=== PATIENT | female | born 1985 | race Caucasian/White ===

== ENCOUNTER 2018-07-11 17:31 | Emergency (ER) | payer SELFPAY ==
[~2018-07-11] VITALS: Ht 154.9 cm; Wt 51.4 kg
[~2018-07-11 17:31] MED LIST: NORCO 325 MG-51 TAB PO; ZOFRAN8 MG PO
[2018-07-11 17:38] VITALS: BP 113/62; TEMP 100.2
[2018-07-11 18:20] LABS: BASO % 0.1 % (0.0-2.0); EOS # 0.1 (0.0-0.7); EOS % 0.5 % (0-4.0); GRAN # 11.8 (1.4-6.5); GRAN % 87.5 % (42.2-75.2); HEMATOCRIT 37.7 % (37.0-47.0); HEMOGLOBIN 12.9 g/dl (12.5-16.0); LYMPH % 7.7 % (20.0-51.0); MEAN CELL VOLUME 93 fl (80.0-100.0); MEAN CORPUSCULAR HEMOGLOBIN 32 pg (27.0-31.0); MEAN CORPUSCULAR HGB CONC 34 g/dl (33.0-37.0); MEAN PLATELET VOLUME 10.1 fl (7.4-10.4); MONO # 0.5 (0.1-0.6); MONO % 3.9 % (1.7-9.3); PLATELET COUNT 247 K/mm3 (130-400); RED BLOOD COUNT 4.06 M/mm3 (4.10-5.30); REDCELL DISTRIBUTION WIDTH-CV 12.7 % (11.5-14.5)
[2018-07-11 18:32] LABS: ALBUMIN 3.5 gm/dL (3.5-5.0); BILIRUBIN,TOTAL 0.3 mg/dL (0.0-1.0); CALCIUM 8.3 mg/dL (8.4-10.2); CREATININE, serum 0.5 mg/dL (0.52-1.25); POTASSIUM 3.5 mmol/L (3.4-5.0); TOTAL PROTEIN 6.7 gm/dL (6.4-8.2)
[2018-07-11 18:46] LABS: C-REACTIVE PROTEIN 14.2 mg/dL (0.0-0.9)
[2018-07-11] MEDS ORDERED: AMOXICILLIN 8751 TAB PO ×3 (18:47→19:37)
[2018-07-11] MEDS ORDERED: NORCO 325 MG-51 TAB PO (18:47)
[2018-07-11 19:05] VITALS: PULSE 99
== END 2018-07-11 19:06 | disposition home or self-care (01) ==
LOC: COL.ER 17:31
PROVIDERS: Family Medicine
DX: L03.116 Cellulitis of left lower limb (principal)

== ENCOUNTER 2018-10-12 18:04 | Inpatient (IN) | payer SELFPAY ==
[~2018-10-12] VITALS: Wt 54.4 kg
[2018-10-12] VITALS (7 sets, daily range): BP systolic 87–110; BP diastolic 49–72; PULSE 92–107
[~2018-10-12 18:04] MED LIST changes: +AMOXICILLIN 8751 TAB PO
[2018-10-12 18:27] LABS: BASO % 0.4 % (0.0-2.0); EOS # 0.3 (0.0-0.7); EOS % 3.1 % (0-4.0); GRAN # 5.4 (1.4-6.5); GRAN % 64.1 % (42.2-75.2); HEMATOCRIT 39.5 % (37.0-47.0); HEMOGLOBIN 14.1 g/dl (12.5-16.0); LYMPH # 2.3 (1.2-3.4); LYMPH % 27.1 % (20.0-51.0); MEAN CELL VOLUME 91 fl (80.0-100.0); MEAN CORPUSCULAR HEMOGLOBIN 33 pg (27.0-31.0); MEAN CORPUSCULAR HGB CONC 36 g/dl (33.0-37.0); MEAN PLATELET VOLUME 9.8 fl (7.4-10.4); MONO # 0.4 (0.1-0.6); MONO % 4.9 % (1.7-9.3); PLATELET COUNT 306 K/mm3 (130-400); RED BLOOD COUNT 4.34 M/mm3 (4.10-5.30); REDCELL DISTRIBUTION WIDTH-CV 12.8 % (11.5-14.5)
[2018-10-12 18:37] LABS: ALANINE AMINOTRANSFERASE 22 U/L (9-52); ALKALINE PHOSPHATASE 52 U/L (50-136); ANION GAP 9 mmol/L (7-16); AST,SGOT 13 U/L (15-37); BILIRUBIN,TOTAL 0.2 mg/dL (0.0-1.0); BLOOD UREA NITROGEN 12 mg/dL (7-17); CALCIUM 8.6 mg/dL (8.4-10.2); CARBON DIOXIDE 21 mmol/L (22-30); CHLORIDE 110 mmol/L (98-107); CREATININE, serum 0.62 mg/dL (0.52-1.25); GLUCOSE 92 mg/dL (74-106); POTASSIUM 3.2 mmol/L (3.4-5.0); SODIUM 140 mmol/L (137-145); TOTAL PROTEIN 6.8 gm/dL (6.4-8.2)
[2018-10-12 18:40] LABS: COLLECTION METHOD CATHETER
[2018-10-12 18:46] LABS: PH 6 (5-8); SQUAMOUS EPITHELIAL 0-2 /hpf; URINE APPEARANCE Clear; URINE BACTERIA Rare /hpf; URINE BILIRUBIN Negative (NEGATIVE); URINE BLOOD 1+ (NEGATIVE); URINE COLOR Yellow; URINE GLUCOSE Negative (NEGATIVE); URINE KETONE Negative (NEGATIVE); URINE LEUKOCYTE ESTERASE Trace (NEGATIVE); URINE NITRATE Positive (NEGATIVE); URINE PROTEIN(semi-quant) 1+ (NEGATIVE); URINE UROBILINOGEN Negative (NEGATIVE)
[2018-10-12 18:49] LABS: ACETAMINOPHEN < 10 ug/mL (10-30); ALCOHOL(ethanol),MEDICAL < 10 mg/dL; SALICYLATE < 1.0 mg/dL
[2018-10-12 19:28] LABS: MAGNESIUM 1.8 mg/dL (1.6-2.3); PHOSPHOROUS 2.6 mg/dL (2.5-4.5)
[2018-10-12 19:59] LABS: TRICYCLIC ANTIDEPRESS URINE NEGATIVE
[2018-10-13] VITALS (44 sets, daily range): BP systolic 89–126; BP diastolic 46–89; PULSE 68–107; TEMP 98.3–99.1
[2018-10-13] MEDS ORDERED: BENADRYL50 MG PO (02:39)
[2018-10-13] MEDS ORDERED: MELATONIN1 MG PO (02:40)
[2018-10-13 06:03] LABS: BASO % 0.2 % (0.0-2.0); EOS % 0.2 % (0-4.0); GRAN # 10.1 (1.4-6.5); HEMATOCRIT 37.6 % (37.0-47.0); HEMOGLOBIN 12.8 g/dl (12.5-16.0); LYMPH # 1.6 (1.2-3.4); LYMPH % 13.4 % (20.0-51.0); MEAN CELL VOLUME 94 fl (80.0-100.0); MEAN CORPUSCULAR HEMOGLOBIN 32 pg (27.0-31.0); MEAN CORPUSCULAR HGB CONC 34 g/dl (33.0-37.0); MEAN PLATELET VOLUME 10.2 fl (7.4-10.4); MONO # 0.4 (0.1-0.6); PLATELET COUNT 271 K/mm3 (130-400); RED BLOOD COUNT 4.01 M/mm3 (4.10-5.30); REDCELL DISTRIBUTION WIDTH-CV 13.1 % (11.5-14.5)
[2018-10-13 06:16] LABS: ALBUMIN 3.6 gm/dL (3.5-5.0); BILIRUBIN,TOTAL 0.3 mg/dL (0.0-1.0); CALCIUM 8.4 mg/dL (8.4-10.2); CREATININE, serum 0.52 mg/dL (0.52-1.25); TOTAL PROTEIN 6.4 gm/dL (6.4-8.2)
[2018-10-13] MEDS ORDERED: UNISOM25 MG (07:46)
[2018-10-14] VITALS (10 sets, daily range): BP systolic 89–104; BP diastolic 57–78; PULSE 69–85; TEMP 98–98.8
[2018-10-14 05:49] LABS: BASO % 0.5 % (0.0-2.0); EOS # 0.3 (0.0-0.7); EOS % 3.4 % (0-4.0); GRAN # 2.9 (1.4-6.5); GRAN % 37.9 % (42.2-75.2); LYMPH % 52.5 % (20.0-51.0); MEAN CELL VOLUME 96 fl (80.0-100.0); MEAN CORPUSCULAR HEMOGLOBIN 33 pg (27.0-31.0); MEAN CORPUSCULAR HGB CONC 34 g/dl (33.0-37.0); MEAN PLATELET VOLUME 10.2 fl (7.4-10.4); MONO # 0.4 (0.1-0.6); MONO % 5.4 % (1.7-9.3); PLATELET COUNT 252 K/mm3 (130-400); RED BLOOD COUNT 3.68 M/mm3 (4.10-5.30); REDCELL DISTRIBUTION WIDTH-CV 13.4 % (11.5-14.5)
[2018-10-14 05:50] LABS: HEMATOCRIT 35.2 % (37.0-47.0)
[2018-10-14 06:05] LABS: CALCIUM 7.9 mg/dL (8.4-10.2); CREATININE, serum 0.62 mg/dL (0.52-1.25); POTASSIUM 3.5 mmol/L (3.4-5.0)
[2018-10-14] MEDS ORDERED: CIPRO 500MG TA500 MG PO (14:54)
[2018-10-14] MEDS ORDERED: AMOXICILLIN 8751 TAB PO (14:54)
== END 2018-10-14 16:25 | disposition home or self-care (01) | DRG 917 ==
LOC: COL.ER 18:04 → ICU 19:17
PROVIDERS: Emergency Medicine; Hospitalist; Nurse Practitioner Family
PROC: 0RSDXZZ Reposition Left Temporomandibular Joint, External Approach (ICD-10-PCS; principal; 2018-10-12)
PROC: 0RSCXZZ Reposition Right Temporomandibular Joint, External Approach (ICD-10-PCS; 2018-10-12)
DX: T45.0X2A Poisoning by antiallergic and antiemetic drugs, intentional self-harm, initial encounter (principal); J69.0 Pneumonitis due to inhalation of food and vomit; N39.0 Urinary tract infection, site not specified; S03.03XA Dislocation of jaw, bilateral, initial encounter; F17.210 Nicotine dependence, cigarettes, uncomplicated; R45.1 Restlessness and agitation; R44.1 Visual hallucinations; R27.0 Ataxia, unspecified; E87.6 Hypokalemia; X58.XXXA Exposure to other specified factors, initial encounter
CPT/HCPCS: 99222-AI; 99239; A4216; J0696; J2060; J2405; J3480; J7030